=== PATIENT | male | born 1935 | race Caucasian/White ===

== ENCOUNTER 2020-06-30 06:23 | Day surgery (SDC) | payer MEDICARE, OTHER ==
[~2020-06-30 06:23] MED LIST: Dextrose 5%-0.45% NaCl 1,000 ML IV SCH; Midazolam 1 MG/ML 2 ML SDV ONE; Sodium Chloride 0.9% 10 ML Syringe FLUSH PRN; fentaNYL 100 MCG/2 ML SDV ONE
[2020-06-30] MEDS ORDERED: Midazolam 1 MG/ML 2 ML SDV IV ONE ×5 (06:24→07:45)
[2020-06-30] MEDS ORDERED: fentaNYL 100 MCG/2 ML SDV IV ONE ×4 (06:24→07:43)
--- NOTE | 2020-06-30 08:33 | OR ---
DATE: 06/30/2020 PROCEDURE: Total colonoscopy. INSTRUMENT USED: [id number]-HQ190 Olympus video panendoscope. PREMEDICATIONS: Fentanyl 100 mcg intravenous, Versed 2.5 mg intravenous. Nasal O2 cannula. The procedure was done under pulse oximetry, BP recording, and patient monitor. INDICATION: The patient with previous villotubular adenoma excision and recently detected anemia with iron-deficiency. Colonoscopic examination is done for detection of any polypoid lesions and removal, endoscopic hemostasis therapy if needed. DESCRIPTION OF PROCEDURE: Initial rectal exam showed some perianal deformity and external hemorrhoidal tags. Rigid anoscopy showed small internal hemorrhoids without bleeding from them. The colonoscope was passed with ease. Numerous scattered diverticula were noted in the distal left colon along with significant deformity. The scope was passed with ease up to the ileocecal area. Photographs were taken of the normal-appearing cecum identified by landmarks of appendiceal orifice and double-bulged ileocecal folds. No bleeding was noted from any of the visualized areas at the commencement of the examination. Bowel preparation was found to be adequate, [place] Scale 3 in all the regions, total score 9. No stricture. No vascular ectasia. No large isolated ulcerations seen. No evidence of diffuse inflammatory bowel disease in the form of friability, contact bleeding, or ulcerations. No polyp or tumor mass identified. Probing the proximal sides of folds and flexures using adequate distention and clearing up the stool material, withdrawal of the scope was made, cecum to rectum time over 6 minutes. No bleeding was noted from any of the visualized areas at the completion of examination. IMPRESSION: Diverticulosis. The patient tolerated the procedure well. [facility] /[id number]
--- NOTE | 2020-06-30 10:46 | LETTER ---
06/30/2020 RE: ERICK GARCES : 1935 [place] [address] Dear Ms. Farrell: Mr. Erick Garces had colonoscopic examination done this morning and he tolerated the procedure well. I herewith send a copy of the endoscopy note and photographs for your review. Thank you. Sincerely, [facility] /[id number]
== END 2020-06-30 10:15 | disposition home or self-care (01) ==
LOC: DL.ENDO 06:23
PROVIDERS: ATTEND Internal Medicine Gastroenterology
DX: K57.30 Diverticulosis of large intestine without perforation or abscess without bleeding (principal); D50.9 Iron deficiency anemia, unspecified; K64.4 Residual hemorrhoidal skin tags; K64.8 Other hemorrhoids; E78.5 Hyperlipidemia, unspecified; I10 Essential (primary) hypertension; K59.09 Other constipation; Z98.49 Cataract extraction status, unspecified eye; Z87.2 Personal history of diseases of the skin and subcutaneous tissue; Z86.010 Personal history of colon polyps; Z87.891 Personal history of nicotine dependence; Z86.73 Personal history of transient ischemic attack (TIA), and cerebral infarction without residual deficits
CPT/HCPCS: 45378; J2250; J3010; J7042